=== PATIENT | female | born 1980 | race Caucasian/White ===

== ENCOUNTER 2025-07-29 09:37 | Oncology outpatient (recurring) (ONCR) | payer OTHER, SELFPAY ==
[2025-07-29] VITALS (8 sets, daily range): BP systolic 119–148; BP diastolic 79–101; PULSE 65–95; RESP 17–18; TEMP 36.3–36.9; O2SAT 95–98
[2025-07-29 10:31] LABS: Hematocrit 41.9 % (36-47); Hemoglobin 13.80 g/dL (11.27-16.99); Mean Corpuscular HGB Conc 32.9 g/dL (30-55); Mean Corpuscular Hemoglobin 30.6 pg (27-33); Mean Corpuscular Volume 92.9 fl (85-98); Nucleated Red Blood Cells % 0 %; Platelet Count 466 10^3/cmm (157-399); Red Blood Count 4.51 10^6/uL (3.85-5.65); White Blood Count 13.84 10^3/uL (3.29-11.43)
[2025-07-29 10:48] LABS: Alanine Aminotransferase 16 U/L (0-33); Albumin Level 4.0 g/dL (3.5-5.2); Alkaline Phosphatase 65 U/L (35-105); Anion Gap 13.6 (5-19); Aspartate Amino Transferase 11 U/L (0-32); Blood Urea Nitrogen 12 mg/dL (6-20); Calcium 9.0 mg/dL (8.5-10.5); Carbon Dioxide 27 mmol/L (22-29); Chloride 103 mmol/L (98-107); Creatinine Clr Calc Pharmacy 120.7821; Globulin 2.6 g/dL (1.3-4.6); Glucose 99 mg/dL (65-115); Osmolality Calculated 290 mOsm/kg (285-295); Potassium 3.6 mmol/L (3.5-5.1); Sodium 140 mmol/L (136-145); Total Protein 6.6 g/dL (6.6-8.7)
== END 2025-07-30 23:59 | disposition home or self-care (01) ==
PROVIDERS: Family Provider Family Medicine; PCP Family Medicine; Visit Provider Internal Medicine
DX: K51.311 Ulcerative (chronic) rectosigmoiditis with rectal bleeding (principal); Z79.899 Other long term (current) drug therapy
CPT/HCPCS: 80053; 85025; 86140; 96413; 96415; J7050; J9999; Q5103

== ENCOUNTER 2025-08-12 08:52 | Oncology outpatient (recurring) (ONCR) | payer OTHER, SELFPAY ==
[2025-08-12 10:30] VITALS: BP 142/85; PULSE 66; RESP 17; TEMP 36.5; O2SAT 97
[2025-08-12 10:45] VITALS: BP 120/78; PULSE 65; RESP 17; TEMP 36.3; O2SAT 95
[2025-08-12 11:00] VITALS: BP 137/84; PULSE 70; RESP 16; TEMP 36.9; O2SAT 96
[2025-08-12 11:15] VITALS: BP 134/84; PULSE 74; RESP 17; TEMP 36.4; O2SAT 95
[2025-08-12 11:30] VITALS: BP 136/98; PULSE 73; RESP 16; TEMP 36.6; O2SAT 97
[2025-08-12 13:08] VITALS: BP 120/81; PULSE 74; RESP 17; TEMP 36.5; O2SAT 96
== END 2025-08-30 23:59 | disposition home or self-care (01) ==
PROVIDERS: Family Provider Family Medicine; PCP Family Medicine; Visit Provider Internal Medicine
DX: K51.311 Ulcerative (chronic) rectosigmoiditis with rectal bleeding (principal); Z79.899 Other long term (current) drug therapy
CPT/HCPCS: 96413; 96415; A4222; J7050; J9999; Q5103

== ENCOUNTER 2025-09-09 09:15 | Oncology outpatient (recurring) (ONCR) | payer OTHER, SELFPAY ==
[2025-09-09] VITALS (7 sets, daily range): BP systolic 114–141; BP diastolic 64–88; PULSE 76–88; RESP 16–17; TEMP 36.4–36.8; O2SAT 99–100
== END 2025-09-29 23:59 | disposition home or self-care (01) ==
PROVIDERS: Family Provider Family Medicine; PCP Family Medicine; Visit Provider Internal Medicine
DX: K51.311 Ulcerative (chronic) rectosigmoiditis with rectal bleeding (principal); Z79.899 Other long term (current) drug therapy
CPT/HCPCS: 96413; 96415; A4222; J7050; J9999; Q5103